=== PATIENT | female | born 1965 | race Caucasian/White ===

== ENCOUNTER 2016-05-01 17:32 | Emergency (ER) | payer OTHER ==
[~2016-05-01] VITALS: Wt 81.0 kg
[~2016-05-01 17:32] MED LIST: CIPR500T4 PO
--- NOTE | 2016-05-01 19:08 | ERD ---
ER Documentation Chief Complaint Date/Time DATE: 05/01/16 TIME: 19:03 Chief Complaint HEADACHE X 2 WEEKS HPI Patient is a 50 year old female who presents to the ED with multiple complaints. She states that for the last 2 weeks, she has has a cough, runny nose, sore throat, congestion and headaches. She states she has never had these headaches before. She complains of dizziness. She states the pain is located in the back of her head. She denies neck pain. She denies diplopia, phonophobia. Denies ear pain, denies blurred vision. States that she has taken Tylenol and Motrin for her symptoms but states that the pain is still there once the medication wears off. She also states that she had a fall last week and stated she fell on her left leg. She states that she did get x-rays from her primary care but did not get the results and is requesting repeat x-rays. She states that she has pain to her left leg and left ankle. She is able to ambulate and denies weakness. She denies pain in her hips. Denies fever or chills. Denies abdominal pain, nausea, vomiting, diarrhea or constipation. Denies leg pain, swelling, recent travel or recent surgery. No other complaints. ROS All systems reviewed and are negative except as per history of present illness. Medications Home Meds Active Scripts Benzonatate* (Tessalon Perle*) 100 Mg Capsule, 100 MG PO Q8H Y for COUGH for 10 Days, CAP Prov:MIRTA LIU PA-C 05/01/16 Albuterol Sulfate* (Proair HFA*) 8.5 Gm Hfa.aer.ad, 2 PUFF INH Q4, #1 INHALER Prov:MIRTA LIU PA-C 05/01/16 Azithromycin* (Zithromax*) 250 Mg Tablet, 250 MG PO .ZPACK DIRECTED, #6 TAB TAKE 500 MG (2 TABS) THE FIRST DAY THEN 250 MG (1 TAB) DAYS 2-5 Prov:MIRTA LIU PA-C 05/01/16 Ciprofloxacin Hcl* (Ciprofloxacin Hcl*) 500 Mg Tablet, 500 MG PO BID for 7 Days , TAB Prov:FRANSICO CASPER PA-C 09/02/14 Allergies Allergies: Coded Allergies: No Known Allergy (Unverified , 09/02/14) PMhx/Soc History of Surgery: Yes (, HERNIA) Anesthesia Reaction: No Hx Neurological Disorder: No Hx Respiratory Disorders: No Hx Cardiac Disorders: No Hx Psychiatric Problems: No Hx Miscellaneous Medical Probl: Yes (thyroid) Hx Alcohol Use: No Hx Substance Use: No Hx Tobacco Use: No Smoking Status: Never smoker FmHx Family History: No coronary disease, No diabetes, No other Physical Exam Vitals Vital Signs Date Time Temp Pulse Resp B/P Pulse Ox O2 Delivery O2 Flow Rate FiO2 05/01/16 17:36 98.0 83 18 130/68 99 Physical Exam GENERAL: Well-developed, well-nourished female. Appears in no acute distress. HEAD: Normocephalic, atraumatic. EYES: Pupils are equally reactive bilaterally. EOMs grossly intact. No conjunctival erythema. ENT: Moist mucous membranes. No uvula deviation. No kissing tonsils. No exudates. NECK: Supple. No lymphadenopathy or thyromegaly. No meningismus. negative kernig. negative brudinski. LUNG: Clear to auscultation bilaterally. No rhonchi, wheezing, rales or coarse breath sounds. HEART: Regular rate and rhythm. No murmurs, rubs or gallops. ABDOMEN: No scars, ecchymosis or rashes noted. Soft, nontender, and nondistended. Positive bowel sounds in all four quadrants. No rebound tenderness , no guarding. (-) McBurneys point tenderness. No CVA tenderness. BACK: No midline tenderness. Extremities: Equal pulses bilaterally. No peripheral clubbing, cyanosis or edema. No unilateral leg swelling. Small ecchymosis to the left leg. No deformities or step-offs. Nontender to malleoli. No foot pain. No hip pain. No open wounds or lacerations. Pulses intact bilaterally. No swelling or erythema. Negative Homans sign NEUROLOGIC: Alert and oriented. Moving all four extremities. 5/5 strength in all extremities. Normal speech. Steady gait. Cranial nerves II through XII intact SKIN: Normal color. Warm and dry. No rashes or lesions. Capillary refill < 2 seconds Results 24 hrs Current Medications Medications (Trade) Dose Ordered Sig/Michelle Route PRN Reason Start Time Stop Time Status Last Admin Dose Admin Acetaminophen/ Hydrocodone Bitart ([place] (5/325)) 1 tab ONCE ONCE PO 05/01/16 19:30 05/01/16 19:31 DC Procedures/MDM ER COURSE: I kept the patient and/or family informed of laboratory and diagnostic imaging results throughout the emergency room course. EKG, MONITORS, & DIAGNOSTIC IMAGING: [place] [id number] Radiology Main Line: [phone] DIAGNOSTIC IMAGING REPORT Patient: DELILAH ELLIOTT : 1965 Age: 50 Sex: F MR #: [id number] DOS: 05/01/161853 Ordering MD: MIRTA LIU PA-C Location: [facility] Room/Bed: PROCEDURE: XR Ankle. CLINICAL INDICATION: Left ankle pain. TECHNIQUE: Three views of the left ankle were performed. COMPARISON: None. FINDINGS: There is no acute osseous or articular abnormality. No evidence for fracture. Bone mineral density is preserved. The articular surfaces are smooth without evidence of marginal erosions. The ankle mortise is preserved. An os peroneum is present. Mild lateral soft tissue swelling is noted. IMPRESSION: 1. No acute osseous abnormality. 2. Mild soft tissue swelling. RPTAT: AA .Rick Jose MD, MD Date Time Electronically viewed and signed by .Rick Jose MD, MD on 05/01/2016 20:04 .d/ CC: MIRTA LIU PA-C [place] [id number] Radiology Main Line: [phone] DIAGNOSTIC IMAGING REPORT Patient: DELILAH ELLIOTT : 1965 Age: 50 Sex: F MR #: [id number] DOS: 05/01/161853 Ordering MD: MIRTA LIU PA-C Location: [facility] Room/Bed: PROCEDURE: Noncontrast CT Head. CLINICAL INDICATION: Headache. TECHNIQUE: Noncontrast CT of the head was obtained. The administered radiation dose was CTDI vol = 30.62 mGy, DLP = 634.23 mGy-cm. One or more of the following dose reduction techniques were used: Automated exposure control, Adjustment of the mA and/or kV according to patient size, or Use of iterative reconstruction technique. COMPARISON: There are no similar studies submitted for comparison. FINDINGS: The ventricles and sulci are within normal limits. There are a few intraparenchymal coarse calcifications within the bilateral occipital lobes and right frontal lobe suggesting prior infectious/inflammatory etiologies such as neurocysticercosis. There is no loss of morris-white differentiation to suggest acute territorial infarction. There is no acute intracranial hemorrhage or extra-axial fluid collection. There is no mass effect. No midline shift is identified. The orbits are within normal limits. There is moderate to extensive right with mild left maxillary sinus mucosal thickening. There is mild bilateral ethmoid sinus mucosal thickening. No destructive osseous lesion is identified. IMPRESSION: 1. No acute intracranial hemorrhage or extra-axial fluid collection. 2. There are a few intraparenchymal coarse calcifications suggesting prior infectious/inflammatory etiologies such as neurocysticercosis. Further findings as detailed above. RPTAT: PP .Rodríguez Belcher MD, Date Time Electronically viewed and signed by .Rodríguez Belcher MD, on 05/01/2016 19:22 .F/ CC: MIRTA LIU PA-C [place] [id number] Radiology Main Line: [phone] DIAGNOSTIC IMAGING REPORT Patient: DELILAH ELLIOTT : 1965 Age: 50 Sex: F MR #: [id number] DOS: 05/01/16 1854 Ordering MD: MIRTA LIU PA-C Location: [facility] Room/Bed: PROCEDURE: XR Chest. CLINICAL INDICATION: Cough TECHNIQUE: Single frontal chest x-ray. COMPARISON: None. FINDINGS: The lungs are clear. No focal opacification is seen. The cardiac silhouette is not enlarged. Aortic arch calcifications are present. The osseous structures are unremarkable. IMPRESSION: 1. Negative frontal chest. 2. Atherosclerotic aortic calcifications. RPTAT: AA .Rick Jose MD, MD Date Time Electronically viewed and signed by .Rick Jose MD, MD on 05/01/2016 20:04 .d/ CC: MIRTA LIU PA-C MEDICATIONS: [place]. Tolerated well and stated improvement in symptoms, with no adverse reaction. MEDICAL DECISION MAKING: This is a 50 year old female who presents with headache, leg pain, cough, runny nose. Vital signs were reviewed. Patient is afebrile. Patient is not hypoxic. Patient is not toxic or ill appearing. Patient likely has cough of unknown etiology. X-rays as read by radiologist low suspicion for pneumonia, PE, pneumothorax, ACS, epiglottitis, obstruction, TB, pertussis, meningitis, sepsis. Her leg pain is of unknown etiology. Low suspicion for dislocation, fracture, septic joint, compartment syndrome, osteomyelitis, avascular necrosis , DVT, Achilles tendon rupture, cellulitis. At this time, unable to rule out any tendon and ligament injuries. Low suspicion for intracranial hemorrhage, meningitis, intracranial mass, concussion, temporal arteritis, stroke, elevated intracranial pressure, seizure. DISCHARGE: At this time, patient is stable for discharge and outpatient management with no new complaints during the ER course. Patient was sent home with Tessalon Perles , albuterol, azithromycin. Patient will be discharged home with instructions to recheck for new or worsening symptoms such as fever, nausea, weakness, LOC and to follow up with primary care in the next 1-2 days. Patient was advised to return to the ER for any new or worsening symptoms. Plan was discussed and patient and/or family understands and agrees. Home instructions were given. Departure Diagnosis: Primary Impression: Cough Additional Impression: Headache Headache type: unspecified Headache chronicity pattern: unspecified pattern Intractability: not intractable Qualified Code: R51 - Nonintractable headache, unspecified chronicity pattern, unspecified headache type Condition: Stable MIRTA LIU PA-C May 01, 2016 19:08
--- NOTE | 2016-05-01 19:22 | RADRPT ---
PROCEDURE: Noncontrast CT Head. CLINICAL INDICATION: Headache. TECHNIQUE: Noncontrast CT of the head was obtained. The administered radiation dose was CTDI vol = 30.62 mGy, DLP = 634.23 mGy-cm. One or more of the following dose reduction techniques were used: Au tomated exposure control, Adjustment of the mA and/or kV according to patient size, or Use of iterat guillermina reconstruction technique. COMPARISON: There are no similar studies submitted for comparison. FINDINGS: The ventricles and sulci are within normal limits. There are a few intraparenchymal coarse calcifications within the bilateral occipital lobes and righ t frontal lobe suggesting prior infectious/inflammatory etiologies such as neurocysticercosis. There is no loss of morris-white differentiation to suggest acute territorial infarction. There is no acute intracranial hemorrhage or extra-axial fluid collection. There is no mass effect. No midline shift is identified. The orbits are within normal limits. There is moderate to extensive right with mild left maxillary sinus mucosal thickening. There is mi ld bilateral ethmoid sinus mucosal thickening. No destructive osseous lesion is identified. IMPRESSION: 1. No acute intracranial hemorrhage or extra-axial fluid collection. 2. There are a few intraparenchymal coarse calcifications suggesting prior infectious/inflammatory e tiologies such as neurocysticercosis. Further findings as detailed above. RPTAT: PP .Rodríguez Belcher MD, Date Time Electronically viewed and signed by .Rodríguez Belcher MD, on 05/01/2016 19:22 .F/
[2016-05-01] MEDS ORDERED: HYDROCODONE/APAP (5/325) TAB PO ONE (19:30)
--- NOTE | 2016-05-01 20:04 | RADRPT ---
PROCEDURE: XR Chest. CLINICAL INDICATION: Cough TECHNIQUE: Single frontal chest x-ray. COMPARISON: None. FINDINGS: The lungs are clear. No focal opacification is seen. The cardiac silhouette is not enlarged. Aort ic arch calcifications are present. The osseous structures are unremarkable. IMPRESSION: 1. Negative frontal chest. 2. Atherosclerotic aortic calcifications. RPTAT: AA .iRck Jose MD, MD Date Time Electronically viewed and signed by .Rick Jose MD, MD on 05/01/2016 20:04 .d/
--- NOTE | 2016-05-01 20:04 | RADRPT ---
PROCEDURE: XR Tibia and Fibula. CLINICAL INDICATION: Leg pain TECHNIQUE: Two views of the left tibia and fibula are available for review. COMPARISON: None available FINDINGS: The left tibia and fibula are intact. No acute fracture or dislocation is seen. No radiopaque fore ign body is identified. The soft tissues are unremarkable. IMPRESSION: 1. Unremarkable left tibia and fibula x-ray series. RPTAT: AA .Rick Jose MD, MD Date Time Electronically viewed and signed by .Rick Jose MD, MD on 05/01/2016 20:03 .d/
--- NOTE | 2016-05-01 20:05 | RADRPT ---
PROCEDURE: XR Ankle. CLINICAL INDICATION: Left ankle pain. TECHNIQUE: Three views of the left ankle were performed. COMPARISON: None. FINDINGS: There is no acute osseous or articular abnormality. No evidence for fracture. Bone mineral density is preserved. The articular surfaces are smooth without evidence of marginal erosions. The ankle mo rtise is preserved. An os peroneum is present. Mild lateral soft tissue swelling is noted. IMPRESSION: 1. No acute osseous abnormality. 2. Mild soft tissue swelling. RPTAT: AA .Rick Jose MD, Date Time Electronically viewed and signed by .Rick Jose MD, on 05/01/2016 20:04 .d/
[2016-05-01] MEDS ORDERED: AZIT250T94 PO (20:09)
[2016-05-01] MEDS ORDERED: ALBU8.5H3 INH (20:09)
[2016-05-01] MEDS ORDERED: BENZ100C70 PO (20:09)
[2016-05-01 21:02] VITALS: BP 125/65; PULSE 78; RESP 18
== END 2016-05-01 20:55 | disposition home or self-care (01) ==
LOC: FTE 17:32
DX: R05 Cough (principal); R51 Headache; S89.92XA Unspecified injury of left lower leg, initial encounter; W18.39XA Other fall on same level, initial encounter; Y92.9 Unspecified place or not applicable
CPT/HCPCS: 70450; 71010; 73590; 73610; Z7502; Z7610

== ENCOUNTER 2017-06-17 08:19 | Emergency (ER) | END 2017-06-17 11:42 | disposition home or self-care (01) ==

== ENCOUNTER 2018-09-18 23:21 | Emergency (ER) | payer OTHER ==
[~2018-09-18] VITALS: Ht 165.1 cm; Wt 96.8 kg
[~2018-09-18 23:21] MED LIST changes: +ACET500C5 PO; +ALBU8.5H8 INH; +AZIT250T PO; +BENZ-6 PO; +GUAI-158 PO; +IBUP-1542 PO; +IBUP-1561 PO; +OSEL75CA23 PO
[2018-09-18 23:23] VITALS: Ht 165.1 cm; Wt 96.8 kg
[2018-09-19] MEDS ORDERED: ACETAMINOPHEN 500 MG TAB PO STA (01:38)
--- NOTE | 2018-09-19 01:42 | ERD ---
ER Documentation Chief Complaint Chief Complaint COUGH, HEADACHE, ST, AND CWP DUE TO COUGH X3DAYS HPI This is a 52-year-old female patient presents emergency room with complaint of cough, headache, sore throat, increased phlegm with fever over 3 days. Patient does not smoke, history significant for thyroiditis. Patient does say she has pain in her chest when she coughs but only when she coughs. ROS All systems reviewed and are negative except as per history of present illness. Medications Home Meds Active Scripts Guaifenesin/Dextromethorphan* (Guaifenesin* DM) 1 Each Tablet, 1 TAB PO Q12 for 7 Days, #14 TAB.SA Prov:HUSAM CASTILLO NP 09/19/18 Ibuprofen* (Motrin*) 600 Mg Tab, 600 MG PO Q6, #30 TAB Prov:HUSAM CASTILLO NP 09/19/18 Azithromycin* (Zithromax*) 250 Mg Tablet, 250 MG PO DAILY for 4 Days, #4 TAB Prov:HUSAM CASTILLO NP 09/19/18 Acetaminophen* (Tylophen*) 500 Mg Capsule, 1 CAP PO Q6H PRN for PAIN AND OR ELEVATED TEMP, #20 CAP Prov:JANEL TELLEZ PA-C 06/17/17 Ibuprofen* (Motrin*) 400 Mg Tab, 400 MG PO Q6, #30 TAB Prov:JANEL TELLEZ PA-C 06/17/17 Oseltamivir Phosphate* (Tamiflu*) 75 Mg Capsule, 75 MG PO BID for 5 Days, CAP Prov:JANEL TELLEZ PA-C 06/17/17 Benzonatate* (Tessalon Perle*) 100 Mg Capsule, 100 MG PO Q8H PRN for COUGH for 10 Days, CAP Prov:MIRTA LIU PA-C 05/01/16 Albuterol Sulfate* (Proair HFA*) 8.5 Gm Hfa.aer.ad, 2 PUFF INH Q4, #1 INHALER Prov:MIRTA LIU PA-C 05/01/16 Azithromycin* (Zithromax*) 250 Mg Tablet, 250 MG PO .ZPACK DIRECTED, #6 TAB TAKE 500 MG (2 TABS) THE FIRST DAY THEN 250 MG (1 TAB) DAYS 2-5 Prov:MIRTA LIU PA-C 05/01/16 Ciprofloxacin Hcl* (Ciprofloxacin Hcl*) 500 Mg Tablet, 500 MG PO BID for 7 Days, TAB Prov:FRANSICO CASPER PA-C 09/02/14 Allergies Allergies: Coded Allergies: No Known Allergy (Unverified , 09/02/14) PMhx/Soc History of Surgery: Yes (, HERNIA) Anesthesia Reaction: No Hx Neurological Disorder: No Hx Respiratory Disorders: No Hx Cardiac Disorders: No Hx Psychiatric Problems: No Hx Miscellaneous Medical Probl: Yes (thyroid) Hx Alcohol Use: No Hx Substance Use: No Hx Tobacco Use: No Smoking Status: Never smoker FmHx Family History: No diabetes, No coronary disease, No other Physical Exam Vitals Vital Signs Date Temp Pulse Resp B/P (MAP) Pulse Ox O2 O2 Flow FiO2 Time Delivery Rate 09/19/18 97.9 60 18 130/60 96 Room Air 04:12 (83) 09/18/18 98.5 66 20 114/67 97 23:23 (83) Physical Exam Const: No acute distress Head: Atraumatic Eyes: Normal Conjunctiva, PERRL ENT: Normal External Ears, TM clear BL, +Nasal congestion, pharynx pink, moist, no lesions, no petechiae, no exudate Neck: Full range of motion. No meningismus. Anterior lymphadenopathy Resp: Diffuse rhonchi, no wheezing, no increased work of breathing Cardio: Regular rate and rhythm, no murmurs Abd: Soft, non tender, non distended. Normal bowel sounds, no organomegaly Skin: No petechiae or rashes Back: No midline or flank tenderness, no CVT Ext: No cyanosis, or or extremity edema edema Neur: Awake and alert, clear speech, steady gait Psych: Normal Mood and Affect Results 24 hrs Current Medications Medications Dose Sig/Michelle Start Time Status Last (Trade) Ordered Route PRN Stop Time Admin Dose Reason Admin 1,000 mg ONCE STAT 09/19/18 DC 09/19/18 Acetaminophen PO 01:38 01:43 (Tylenol 09/19/18 01:39 Tab) 500 mg ONCE ONCE 09/19/18 DC 09/19/18 Azithromycin PO 04:00 04:10 (Zithromax) 09/19/18 04:01 Procedures/MDM PROCEDURES/MDM DIAGNOSTIC IMAGING: Read by radiologist. Chest x-ray IMPRESSION: No evidence for active cardiopulmonary disease. -Medications: Tylenol Patient tolerated medication well with no adverse reactions. Patient reported improvement in pain. MDM: This patient presents in moderate discomfort due to cough and congestion. Xray negative for pneumonia or other concerning cardiopulmonary findings. Given patient report of Tmax 101 yesterday and reported worsening of cough, phelgm, and chest discomfort, she will be treated for bacterial bronchitis with instructions to follow-up with her PMD in the next 3 days for reevaluation. Patient has been provided with instructions on s/sx of red flags and when to seek emergent medical treatment. DISPOSITION and PLAN: RX: azithromycin, guaifenesin, ibuprofen The patient has been discharge home to follow-up with community physician. Departure Diagnosis: Primary Impression: Acute bacterial bronchitis Condition: Stable HUSAM CASTILLO NP Sep 19, 2018 01:42
[2018-09-19] MEDS ORDERED: AZITHROMYCIN 500 MG TAB PO ONE (04:00)
[2018-09-19 04:12] VITALS: BP 130/60; PULSE 60; RESP 18
== END 2018-09-19 04:13 | disposition home or self-care (01) ==
LOC: FTE 23:21
DX: J20.8 Acute bronchitis due to other specified organisms (principal)
CPT/HCPCS: 71046; Z7502; Z7610

== ENCOUNTER 2018-11-09 08:21 | Emergency (ER) | payer OTHER ==
[~2018-11-09] VITALS: Wt 94.8 kg
[~2018-11-09 08:21] MED LIST changes: +BACL10TA PO; +NAPR-985 PO
[2018-11-09] MEDS ORDERED: KETOROLAC 30 MG INJ IV STA (09:28)
[2018-11-09] MEDS ORDERED: DIPHENHYDRAMINE 50 MG INJ IV ONE (09:30)
[2018-11-09] MEDS ORDERED: SOD CHLORIDE 0.9% 500 ML IV ONE (09:30)
[2018-11-09] MEDS ORDERED: METOCLOPRAMIDE 10 MG INJ IV ONE (09:30)
[2018-11-09 11:56] VITALS: BP 134/64; PULSE 55; RESP 18
== END 2018-11-09 11:58 | disposition home or self-care (01) ==
LOC: FTE 08:21
DX: G43.019 Migraine without aura, intractable, without status migrainosus (principal); M62.838 Other muscle spasm
CPT/HCPCS: 96361; 96374; 96375; J1200; J1885; J2765; J7040; Z7502